=== PATIENT | male | born 1945 | race Caucasian/White ===

== ENCOUNTER 2017-06-05 10:05 | Emergency (ER) | payer OTHER ==
[2017-06-05] MEDS ORDERED: Sodium Chloride 0.9% 1000 ML 1,000 ML IV SCH (10:15)
[2017-06-05 10:31] LABS: BASOPHIL % 0.3 % (0.0-0.4); Eosinophil % 1.5 % (0.00-5.0); Granulocytes % 59.6 % (36.0-66.0); Lymphocytes % 27.7 % (24.0-44.0); Mean Cell Volume 89.6 fl (78-100); Mean Platelet Volume 9.7 fl (6-9.5); Monocytes % 10.9 % (0.0-12.0); Platelet Count 166 K/mm3 (150-450); Red Blood Count 4.24 M/mm3 (4.1-5.6); White Blood Count 6.8 K/mm3 (4.0-10.5)
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
[2017-06-05] MEDS ORDERED: Sodium Chloride 0.9% 1000 ML 1,000 ML ONE (10:46)
[2017-06-05 10:49] LABS: INR 0.97 (0.8-3.0)
[2017-06-05 10:51] LABS: PTT 24.9 SECONDS (24.1-36.1)
[2017-06-05 10:56] LABS: ALBUMIN 3.6 g/dL (3.4-5.0); ALKALINE PHOSPHATASE 63 U/L (46-116); ANION GAP 13.4 MEQ/L (5-15); BLOOD UREA NITROGEN 16 mg/dL (9-20); CHLORIDE 107 mEq/L (98-107); Carbon Dioxide 26.2 mEq/L (21-32); Glucose 143 MG/DL (70-110); Potassium 3.6 mEq/L (3.5-5.1); SGOT/AST 135 U/L (15-37); SGPT/ALT 65 U/L (12-78); SODIUM 143 mEq/L (136-145); Total Protein 7.2 gm/dL (6.4-8.2)
[2017-06-05] MEDS ORDERED: XYLOCAINE 1% HCL 20 ML MDV IJ ONE (11:03)
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
[2017-06-05] MEDS ORDERED: XYLOCAINE 1% HCL 20 ML MDV ONE (11:17)
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
[2017-06-05 11:23] LABS: ETHYL ALCOHOL < 0.010 % (0.00-0.01)
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
[2017-06-05] MEDS ORDERED: KEFLEX 500 MG PO ONE (12:30)
[2017-06-05] MEDS ORDERED: TYLENOL 325 MG PO ONE (12:30)
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
[2017-06-05] MEDS ORDERED: TYLENOL 325 MG ONE (12:38)
[2017-06-05] MEDS ORDERED: KEFLEX 500 MG ONE (12:38)
[2017-06-05 13:09] VITALS: BP 148/80; PULSE 60; O2SAT 99
[2017-06-05 13:09] LABS: Bilirubin NEGATIVE (NEGATIVE); Blood 50 Ery/ul (0-5); COMPLETE URINE MICROSCOPIC? YES; Collection Type VOID; Glucose NEGATIVE (NEGATIVE); Leukocyte Esterase NEGATIVE (NEGATIVE)
[2017-06-05 13:17] LABS: ADD URINE CULTURE? NO (NO); Bacteria RARE /HPF (NEGATIVE); Epithelial Cells RARE /HPF (FEW); Mucus SLIGHT /HPF (NEGATIVE); WBC 0-2 /HPF (0-5)
== END 2017-06-05 13:18 | disposition home or self-care (01) ==
LOC: ED 10:05
PROC: 0HQ0XZZ Repair Scalp Skin, External Approach (ICD-10-PCS; principal; 2017-06-05)
PROC: 09QKXZZ Repair Nasal Mucosa and Soft Tissue, External Approach (ICD-10-PCS; 2017-06-05)
DX: S02.2XXB Fracture of nasal bones, initial encounter for open fracture (principal); S01.01XA Laceration without foreign body of scalp, initial encounter; S21.111A Laceration without foreign body of right front wall of thorax without penetration into thoracic cavity, initial encounter; Y04.2XXA Assault by strike against or bumped into by another person, initial encounter; Y92.149 Unspecified place in prison as the place of occurrence of the external cause; Y99.0 Civilian activity done for income or pay
CPT/HCPCS: 12002; 12011; 36000; 36415; 70450; 70486; 71010; 71260; 73030; 73080; 74177; 80053; 80307; 81000; 85025; 85610; 85730; 86850; 86900; 86901; 96360; 96361; 99285; G0481; A9270-GY

== ENCOUNTER 2019-06-24 16:04 | Emergency (ER) | payer MEDICARE, OTHER ==
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
--- NOTE | 2019-06-24 17:06 | XRAY ---
Indication: Pain following injury. Comparison: None 3 views of the left wrist demonstrate mild osteopenia, mild/moderate degenerative changes 1st metacarpal multangular scaphoid articulation, small 1st metacarpal head spur, and tiny bone cysts of the lunate/distal ulna. No other bony, articular, or soft tissue abnormalities.
[2019-06-24 18:35] VITALS: BP 117/79; PULSE 63; O2SAT 95
== END 2019-06-24 18:34 | disposition home or self-care (01) ==
LOC: ED 16:04
DX: S62.002A Unspecified fracture of navicular [scaphoid] bone of left wrist, initial encounter for closed fracture (principal); M19.032 Primary osteoarthritis, left wrist; R03.0 Elevated blood-pressure reading, without diagnosis of hypertension; W01.10XA Fall on same level from slipping, tripping and stumbling with subsequent striking against unspecified object, initial encounter
CPT/HCPCS: 29126; 73110; 99284

== ENCOUNTER 2020-09-29 18:38 | Emergency (ER) | payer MEDICARE, OTHER ==
[2020-09-29] MEDS ORDERED: XYLOCAINE 1% HCL 20 ML MDV IJ ONE (18:39)
[2020-09-29 18:59] VITALS: O2SAT 98
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
[2020-09-29] MEDS ORDERED: Rocephin 1000 MG INJ IM ONE (19:39)
[2020-09-29] MEDS ORDERED: Rocephin 1000 MG INJ ONE (19:40)
[2020-09-29 19:52] VITALS: BP 152/98; PULSE 69
== END 2020-09-29 19:55 | disposition home or self-care (01) ==
LOC: ED 18:38
DX: T83.038A Leakage of other urinary catheter, initial encounter (principal); I10 Essential (primary) hypertension
CPT/HCPCS: 51702; 96372; 99284; J0696

== ENCOUNTER 2022-09-25 20:58 | Observation (INO) | payer MEDICARE, OTHER ==
[2022-09-25] MEDS ORDERED: MORPHINE SULFATE 2 MG INJ IV ONE (22:36)
[2022-09-25] MEDS ORDERED: Sodium Chloride 0.9% 1000 ML 1,000 ML IV STA (22:36)
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
[2022-09-25 22:43] LABS: Absolute Neutrophil Ct (ANC) 12.18 x10^3/uL (1.4-6.9); Basophil (Absolute #) 0.03 x10^3/uL (0-0.4); Eosinophil % 0.2 % (0.00-5.0); Eosinophil (Absolute #) 0.03 x10^3/uL (0-0.5); Hematocrit 47.3 % (42-50); Hemoglobin 15.5 g/dL (12.5-18.0); Lymphocyte (Absolute #) 1.39 x10^3/uL (1.0-4.6); Lymphocytes % 9.4 % (24.0-44.0); Mean Cell Volume 91.5 fL (78-100); Mean Corpuscular Hgb Concent. 32.8 g/dL (32-36); Mean Platelet Volume 10.4 fL (7.5-11.0); Monocyte (Absolute #) 1.12 x10^3/uL (0.0-1.3); Monocytes % 7.6 % (0.0-12.0); Neutrophil % 82.3 % (36.0-66.0); Platelet Count 207 x10^3/uL (150-450); Red Blood Count 5.17 x10^6/uL (4.1-5.6); White Blood Count 14.8 x10^3/uL (4.0-10.5)
[2022-09-25 22:46] LABS: Appearance CLEAR (CLEAR); Bilirubin NEGATIVE (NEGATIVE); Dipstick done @ ? MAIN LAB; Glucose NEGATIVE (NEGATIVE); Ketones MODERATE-40 (NEGATIVE); Nitrite NEGATIVE (NEGATIVE); Protein,Urine Dip TRACE (Negative); RBC NEGATIVE Ery/ul (0-5); Specific Gravity 1.025 (1.005-1.025); Urobilinogen 0.2 mg/dL (0-1)
[2022-09-25] MEDS ORDERED: Sodium Chloride 0.9% 1000 ML 1,000 ML ONE (22:47)
[2022-09-25] MEDS ORDERED: MORPHINE SULFATE 2 MG INJ ONE (22:47)
[2022-09-25 22:50] LABS: Mucus SLIGHT /HPF (NEGATIVE); WBC 0-2 /HPF (0-5)
[2022-09-25 22:51] LABS: Urine Cultured Indicated? NO
[2022-09-25] MEDS ORDERED: Reglan 10 MG/2 ML IV ONE (22:51)
[2022-09-25] MEDS ORDERED: Reglan 10 MG/2 ML ONE (22:52)
[2022-09-25 23:25] LABS: ALBUMIN 4.6 g/dL (3.5-5.0); ALKALINE PHOSPHATASE 103 U/L (38-126); ANION GAP 10.2 MEQ/L (5-15); BLOOD UREA NITROGEN 14 mg/dL (9-20); CHLORIDE 101 mmol/L (98-107); Calcium 9.5 mg/dL (8.4-10.2); Carbon Dioxide 31 mmol/L (22-30); Creatinine 1 1.07 mg/dL (0.66-1.25); EST GLOMERULAR FILTRATION RATE > 60.0 ML/MIN; Glucose 148 mg/dL (74-106); LIPASE 78 U/L (23-300); Potassium 3.7 mmol/L (3.5-5.1); SGOT/AST 36 U/L (17-59); SGPT/ALT 21 U/L (0-50); SODIUM 138 mmol/L (137-145); Total Protein 8.4 g/dL (6.3-8.2)
[2022-09-26 01:13] LABS: INFLUENZA A NEGATIVE (NEGATIVE); INFLUENZA B NEGATIVE (NEGATIVE); RESPIRATORY SYNCTIAL VIRUS NEGATIVE (Negative); SARS-CoV-2 Xpert Express NEGATIVE (NEGATIVE)
[2022-09-26] MEDS ORDERED: MORPHINE SULFATE 2 MG INJ IV PRN (01:47)
[2022-09-26] MEDS ORDERED: Zofran 4 MG/2 ML VIAL IV PRN (01:47)
[2022-09-26] MEDS: Sodium Chloride 0.9% 1000 ML 1,000 ML IV SCH ×2 (01:57→11:35)
[2022-09-26 05:35] LABS: Absolute Neutrophil Ct (ANC) 9.93 x10^3/uL (1.4-6.9); Basophil (Absolute #) 0.03 x10^3/uL (0-0.4); Eosinophil % 0.6 % (0.00-5.0); Eosinophil (Absolute #) 0.08 x10^3/uL (0-0.5); Hematocrit 41.2 % (42-50); Hemoglobin 14.2 g/dL (12.5-18.0); Lymphocyte (Absolute #) 1.64 x10^3/uL (1.0-4.6); Lymphocytes % 12.7 % (24.0-44.0); Mean Cell Volume 88.8 fL (78-100); Mean Corpuscular Hemoglobin 30.6 pg (26-32); Mean Corpuscular Hgb Concent. 34.5 g/dL (32-36); Mean Platelet Volume 10.5 fL (7.5-11.0); Monocyte (Absolute #) 1.16 x10^3/uL (0.0-1.3); Neutrophil % 77.3 % (36.0-66.0); Platelet Count 183 x10^3/uL (150-450); Red Blood Count 4.64 x10^6/uL (4.1-5.6); White Blood Count 12.9 x10^3/uL (4.0-10.5)
[2022-09-26 06:06] LABS: ALBUMIN 3.9 g/dL (3.5-5.0); ALKALINE PHOSPHATASE 76 U/L (38-126); ANION GAP 7.5 MEQ/L (5-15); BLOOD UREA NITROGEN 12 mg/dL (9-20); CHLORIDE 107 mmol/L (98-107); Calcium 8.8 mg/dL (8.4-10.2); Carbon Dioxide 27 mmol/L (22-30); Creatinine 1 0.96 mg/dL (0.66-1.25); EST GLOMERULAR FILTRATION RATE > 60.0 ML/MIN; Glucose 129 mg/dL (74-106); Potassium 3.4 mmol/L (3.5-5.1); SGOT/AST 26 U/L (17-59); SGPT/ALT 16 U/L (0-50); SODIUM 138 mmol/L (137-145)
--- NOTE | 2022-09-26 08:56 | XRAY ---
Indication: Abdomen pain, nausea, and vomiting.. Multiple contiguous axial images obtained through the abdomen and pelvis without contrast. Comparison: None Lung bases hyperinflated with minimal bilateral dependent atelectasis and small right posterior gutter calcified granuloma. Heart not enlarged. Beam artifact from right total hip arthroplasty limits exam. Noncontrasted stomach and bowel loops appear nonobstructed. Several small bowel loops are mildly fluid distended with mild wall thickening and fluid level in favoring enteritis. Mild diffuse scattered colonic fecal debris throughout and colonic diverticulosis without diverticulitis. Appendix not visualized. Moderately distended gallbladder with multiple stones, largest 2.2 cm. 2 left renal cysts, largest 4.6 cm. A few tiny splenic calcified granulomas. Remaining liver, gallbladder, pancreas, spleen, adrenal glands, kidneys, ureters, and bladder are unremarkable for noncontrast exam. Mild scattered aortoiliac calcifications without AAA. Osseous structures intact with osteopenia, mild levoscoliosis, mild/moderate degenerative spondylosis throughout the thoracolumbar spine, bilateral L5 spondylolysis with 1-2 mm anterolisthesis, and remote inferior L3 compression fracture with approximately 25-50% height loss. Impression: 1. CT findings favoring enteritis. No free fluid/air. 2. Mild diffuse fecal stasis and scattered colonic diverticulosis. 3. Distended gallbladder with gallstones. Sonogram may yield further information if clinically warranted. 4. Chronic findings including left renal cysts, arteriosclerotic disease, chronic bony findings, and old granulomatous disease. Comment: Preliminary interpretation made by [facility]. No critical discrepancy.
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
[2022-09-26 13:50] VITALS: BP 158/77; PULSE 65; O2SAT 95
--- NOTE | 2022-09-26 15:08 | PCM.DCORD ---
- Discharge Disposition: Home, Self-Care Condition: Stable Prescriptions: New Ondansetron ODT 4 MG [Zofran Odt 4 mg] 4 mg PO Q6HPRN PRN #30 tab PRN Reason: Nausea Follow up with: PARKER CARRION MD [Primary Care Provider] -
== END 2022-09-26 18:35 | disposition home or self-care (01) ==
LOC: ED 20:58 → MED SURG 09-26 01:45
PROVIDERS: ADMIT Family Medicine; ATTEND Family Medicine
DX: R11.2 Nausea with vomiting, unspecified (principal); Z20.828 Contact with and (suspected) exposure to other viral communicable diseases
CPT/HCPCS: 0241U; 36000; 36415; 74176; 80053; 81015; 83690; 84484; 85025; 96360; 96374; 96375; 99285; G0378; J2270